=== PATIENT | female | born 1980 | race Caucasian/White ===

== ENCOUNTER 2016-12-15 16:12 | Emergency (ER) | payer OTHER ==
[2016-12-15 19:28] VITALS: BP 135/72
== END 2016-12-15 19:28 | disposition home or self-care (01) ==
LOC: ED 16:12
DX: G43.909 Migraine, unspecified, not intractable, without status migrainosus (principal); G44.209 Tension-type headache, unspecified, not intractable; R03.0 Elevated blood-pressure reading, without diagnosis of hypertension; F32.9 Major depressive disorder, single episode, unspecified; F41.9 Anxiety disorder, unspecified; K21.9 Gastro-esophageal reflux disease without esophagitis; R11.2 Nausea with vomiting, unspecified
CPT/HCPCS: J1885; J2060; J2765; Q0162

== ENCOUNTER 2017-09-03 21:17 | Emergency (ER) | payer OTHER ==
[~2017-09-03] VITALS: Ht 162.6 cm; Wt 81.2 kg
[2017-09-03 21:26] VITALS: Ht 162.6 cm; Wt 81.2 kg
[2017-09-03 22:01] VITALS: BP 124/87
== END 2017-09-03 22:01 | disposition home or self-care (01) ==
LOC: ED 21:17
DX: K52.9 Noninfective gastroenteritis and colitis, unspecified (principal); R42 Dizziness and giddiness

== ENCOUNTER 2020-03-17 23:39 | Emergency (ER) | payer BC ==
[~2020-03-17] VITALS: Ht 152.4 cm; Wt 74.8 kg
[2020-03-17 23:49] VITALS: Ht 152.4 cm; Wt 74.8 kg
[2020-03-18 02:11] LABS: BASOPHIL % 0.3 % (0-2); PLATELET COUNT 403 x10^3mcL (130-400); RED CELL DISTRIBUTION WIDTH 21.8 % (11.5-14.5)
[2020-03-18 04:54] VITALS: BP 115/55
== END 2020-03-18 04:49 | disposition home or self-care (01) ==
LOC: ED 23:39
DX: O20.0 Threatened abortion (principal); O44.01 Complete placenta previa NOS or without hemorrhage, first trimester; O99.011 Anemia complicating pregnancy, first trimester; O99.511 Diseases of the respiratory system complicating pregnancy, first trimester; Z3A.01 Less than 8 weeks gestation of pregnancy; Z91.013 Allergy to seafood
CPT/HCPCS: Q0092